=== PATIENT | female | born 1975 | race Two or more races ===

== ENCOUNTER → 2025-03-23 | Emergency (ER) | payer OTHER ==
[~2025-03-23] VITALS: Ht 165.1 cm; Wt 68.0 kg
[~2025-03-23] MED LIST: ACETAMINOPHEN 500 MG GEL..CAP PO ONE; DEXAMETHASONE SODIUM PHOSPHATE 4 MG/ML VIAL IM ONE; DEXAMETHASONE SODIUM PHOSPHATE 4 MG/ML VIAL ONE; EC-NAPROSYN500 MG PO; FIORICET 50-301 EACH; KETOROLAC TROMETHAMINE 60 MG VIAL IM ONE; MEDROLPACK PO; TOPAMAX15 MG; TUSSI PRES-B L120 M1 PO; ZITHROMAX TRI-500 MG PO
[2025-03-23 17:38] VITALS: BP 148/95; O2SAT 98
[2025-03-23 18:29] LABS: BASO % 0.2 % (0.1-1.2); EOS # 0.04 (0.04-0.54); EOS % 0.4 % (0.7-7.0); LYMPH # 2.28 (1.18-3.74); LYMPH % 22.4 % (19.3-53.1); MEAN PLATELET VOLUME 11.40 fl (9.4-12.4); MONO # 0.78 (0.24-0.82); MONO % 7.6 % (4.7-12.5); NEUT # 7.05 (1.56-6.13); NEUT % 69.1 % (34.0-71.1); RED CELL DISTRIBUTION WIDTH 12.5 % (11.6-14.4)
[2025-03-23 18:55] LABS: ALT/SGPT 21 U/L (12-78); AST/SGOT 13 U/L (15-37); BILIRUBIN TOTAL 0.31 mg/dL (0.3-1.2); BUN CREA RATIO 17 (7.0-25.0); CREATININE SERUM 0.94 mg/dL (0.55-1.02); GFR 62.78; GLOBULINA 3.7 G/DL (2.4-3.5); GLUCOSE FASTING 105 mg/dL (65-100); OSMOLALITY SERUM 281 MOSM/KG (275-295)
== END | disposition home or self-care (01) ==
LOC: ER 17:11
DX: M94.0 Chondrocostal junction syndrome [Tietze] (principal); R07.89 Other chest pain